=== PATIENT | female | born 1955 | race Two or more races ===

== ENCOUNTER → 2025-09-02 | Emergency (ER) | payer OTHER ==
[~2025-09-02] VITALS: Ht 160 cm; Wt 89.8 kg
[~2025-09-02] MED LIST: 8HR ARTHRITIS650 M1 PO; ACETAMINOPHEN 500 MG GEL..CAP PO ONE; CARDURA1 MG PO; DEXAMETHASONE SODIUM PHOSPHATE 4 MG/ML VIAL IM ONE; DEXAMETHASONE SODIUM PHOSPHATE 4 MG/ML VIAL ONE; MEDROLPACK PO; NORFLEX100MG PO; NORVASC2.5 M1 PO; ORPHENADRINE CITRATE 30 MG/ML AMPUL IM ONE; ORPHENADRINE CITRATE 30 MG/ML AMPUL ONE; PEPCID AC20 MG; SINGULAIR4 M1 PO
== END | disposition home or self-care (01) ==
LOC: ER 18:16
DX: M54.16 Radiculopathy, lumbar region (principal); I10 Essential (primary) hypertension; M19.90 Unspecified osteoarthritis, unspecified site; M19.09 Primary osteoarthritis, other specified site; Z88.0 Allergy status to penicillin; Z88.6 Allergy status to analgesic agent; Z88.1 Allergy status to other antibiotic agents
CPT/HCPCS: 96372; 99282; J1100; J2360

== ENCOUNTER → 2025-09-15 | Emergency (ER) | payer OTHER ==
[~2025-09-15] VITALS: Ht 160 cm; Wt 89.8 kg
[2025-09-15 16:17] VITALS: BP 137/82; O2SAT 98
== END | disposition home or self-care (01) ==
LOC: ER 15:03
DX: M54.16 Radiculopathy, lumbar region (principal); Z88.6 Allergy status to analgesic agent; Z88.0 Allergy status to penicillin; Z88.1 Allergy status to other antibiotic agents